=== PATIENT | male | born 1980 | race African-American/Black ===

== ENCOUNTER 2021-07-01 21:14 | Emergency (ER) | payer OTHER ==
[2021-07-01] MEDS ORDERED: Naproxen 500 MG TAB ONE (23:03)
== END 2021-07-01 23:40 ==
LOC: NAV ERS 21:14
DX: J45.901 Unspecified asthma with (acute) exacerbation (principal); I10 Essential (primary) hypertension; R09.1 Pleurisy; Z20.822 Contact with and (suspected) exposure to COVID-19; Z79.899 Other long term (current) drug therapy; Z79.51 Long term (current) use of inhaled steroids
CPT/HCPCS: 71045; 93005; 94640; 94760; J7620